=== PATIENT | female | born 1940 | race Two or more races ===

== ENCOUNTER 2022-08-18 21:05 | Inpatient (IN) | payer OTHER ==
[~2022-08-18] VITALS: Ht 165.1 cm; Wt 61.7 kg
[2022-08-18] MEDS ORDERED: CEFTRIAXONE 1GM BAG (ER ONLY) 50 ML IV ONE ×2 (22:30→22:43)
[2022-08-18] MEDS ORDERED: AZITHROMYCIN 500 MG in IV D5W 250 ML IV ONE (22:30)
[2022-08-18] MEDS ORDERED: AZITHROMYCIN 500 MG VIAL ONE (22:43)
[2022-08-18 22:58] LABS: BASOPHILS % (AUTO) 0.2 % (0.0-2.0); EOSINOPHILS % (AUTO) 0.3 % (0.0-6.0); HEMATOCRIT 40 % (33-45); HEMOGLOBIN 12.5 g/dL (11.5-14.8); LYMPHOCYTES # (AUTO) 0.7 K/uL (0.8-4.8); LYMPHOCYTES % (AUTO) 5.6 % (20.0-44.0); MEAN CORPUSCULAR HGB CONC 31 g/dl (31.0-36.0); MEAN CORPUSCULAR VOLUME 96 fL (82-100); MONOCYTES # (AUTO) 0.9 K/uL (0.1-1.30); MONOCYTES % (AUTO) 7.5 % (2.0-12.0); NEUTROPHILS # (AUTO) 10.6 K/uL (1.8-8.9); NEUTROPHILS % (AUTO) 86.4 % (43.0-81.0); PLATELET COUNT (AUTO) 416 K/uL (150-450); RED BLOOD CELL COUNT(AUTO) 4.18 MIL/uL (4.0-5.2); WHITE BLOOD COUNT (AUTO) 12.3 K/uL (4.3-11.0)
[2022-08-18 23:12] LABS: CALCIUM, SERUM 9.4 mg/dL (8.5-10.1); CARBON DIOXIDE 36 mmol/L (21-32); CHLORIDE 103 mmol/L (98-107); CREATININE 0.7 mg/dL (0.6-1.3); GLUCOSE 131 mg/dL (74-106); POTASSIUM 4.1 mmol/L (3.5-5.1); SODIUM SERUM 139 mmol/L (136-145); UREA NITROGEN, BLOOD 20 mg/dL (7-18)
[2022-08-19] MEDS ORDERED: ACETAMINOPHEN 325 MG TABLET PO PRN
[2022-08-19] MEDS ORDERED: Z GUARD REMEDY 4 OZ OINT TP PRN
[2022-08-19] MEDS ORDERED: TEMAZEPAM 15 MG CAPSULE PO PRN
[2022-08-19] MEDS ORDERED: MORPHINE SULFATE INJ 2 MG/ML DISP.SYRIN IV PRN
[2022-08-19] MEDS ORDERED: ONDANSETRON HCL/PF 4 MG/2 ML VIAL IVP PRN
[2022-08-19] MEDS ORDERED: MAG HYDROX/AL HYDROX/SIMETH 30 ML UDC PO PRN
[2022-08-19] MEDS ORDERED: MAGNESIUM HYDROXIDE 30 ML UDC PO PRN
--- NOTE | 2022-08-19 02:03 | NUR ---
REPORT GIVEN TO JOSE ROBERTO BENAVIDES
--- NOTE | 2022-08-19 02:45 | NUR ---
GRINDER SET UP OPERATOR EXTERNAL NOTE RECEIVED PT FROM ER VIA LIAT, A/O X3, PT ON 3L 02 VIA NM, TOLERATING WELL, NO S/S OF DISTRESS, TELE MONITOR READING SR WITH/ PVC'S HR 89, IV ACCESS ON LAC #2-G, INTACT AND PATENT, SKIN ASSESSMENT SHOWS SACRAL WOUND, REDNESS ION THE [place]EFER[place] AREA FOLDS, AND A BIG BRUISE ON R FOOT. 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 PT ABLE TO MAKE NEEDS KNOWN.ALL FALL AND SAFETY MEASURES IN PLACE, BED ALARM ON, BED IN LOW AND LOCK POSITION, CALL LIGHT AND TABLE WITHIN EASY REACH, SIDE RAILS UP X2. WILL CONTINUE TO MONITOR.
--- NOTE | 2022-08-19 02:47 | NUR ---
PATIENT TRANSFERRED TO [facility]
[2022-08-19 02:50] VITALS: BP 132/68
[2022-08-19] MEDS: HYDROCODONE/APAP 5/325MG TABLET PO PRN ×2 (03:58→17:40)
[2022-08-19 04:00] VITALS: BP 123/66
[2022-08-19] MEDS ORDERED: HYDROCODONE/APAP 5/325MG TABLET PO PRN (04:00)
--- NOTE | 2022-08-19 06:46 | NUR ---
RN CLOSING NOTE ALL SIGNIFICANT CHANGES THROUGHOUT SHIFT WAS DOCUMENTED. PT STABLE WILL ENDORSE TO MORNING SHIFT FOR DREA.
[2022-08-19 07:03] LABS: BASOPHILS % (AUTO) 0.2 % (0.0-2.0); EOSINOPHILS % (AUTO) 0.4 % (0.0-6.0); HEMATOCRIT 39 % (33-45); HEMOGLOBIN 11.9 g/dL (11.5-14.8); LYMPHOCYTES # (AUTO) 0.9 K/uL (0.8-4.8); LYMPHOCYTES % (AUTO) 6.5 % (20.0-44.0); MEAN CORPUSCULAR HGB CONC 31 g/dl (31.0-36.0); MEAN CORPUSCULAR VOLUME 97 fL (82-100); MONOCYTES # (AUTO) 1.3 K/uL (0.1-1.30); MONOCYTES % (AUTO) 9.6 % (2.0-12.0); NEUTROPHILS # (AUTO) 11.3 K/uL (1.8-8.9); NEUTROPHILS % (AUTO) 83.3 % (43.0-81.0); PLATELET COUNT (AUTO) 414 K/uL (150-450); RED BLOOD CELL COUNT(AUTO) 3.96 MIL/uL (4.0-5.2); WHITE BLOOD COUNT (AUTO) 13.6 K/uL (4.3-11.0)
[2022-08-19 07:16] LABS: CALCIUM, SERUM 9.3 mg/dL (8.5-10.1); CARBON DIOXIDE 35 mmol/L (21-32); CHLORIDE 103 mmol/L (98-107); CREATININE 0.6 mg/dL (0.6-1.3); GLUCOSE 121 mg/dL (74-106); MAGNESIUM 2.4 mg/dL (1.8-2.4); POTASSIUM 3.9 mmol/L (3.5-5.1); SODIUM SERUM 142 mmol/L (136-145); UREA NITROGEN, BLOOD 21 mg/dL (7-18)
--- NOTE | 2022-08-19 07:36 | NUR ---
WOUND CARE CONSULT: REVIEWED CHART, NURSING DOCUMENTATION AND PHOTO WHICH INDICATES SACRAL DEEP TISSUE INJURY, PRESENT ON ADMISSION. RECOMMENDATIONS MADE FOR SKIN PROTECTION. DISCUSSED WITH NURSING STAFF. MD IN AGREEMENT WITH PLAN OF CARE.
[2022-08-19] MEDS ORDERED: ESCI10TA PO (07:56)
[2022-08-19] MEDS ORDERED: FENT1PAT5 TD (07:56)
[2022-08-19] MEDS ORDERED: FOLI0.8C PO (07:56)
[2022-08-19] MEDS ORDERED: LEVO137T2 PO (07:56)
[2022-08-19] MEDS ORDERED: APIX5TAB PO (07:56)
[2022-08-19] MEDS ORDERED: DIPH-1048 PO (07:57)
[2022-08-19] MEDS ORDERED: TOPI25TA49 PO (07:57)
[2022-08-19] MEDS ORDERED: TRAZ-182 PO (07:57)
[2022-08-19] MEDS ORDERED: METO25TA3 PO (07:57)
[2022-08-19] MEDS ORDERED: MYRBETRIQ PO (07:57)
[2022-08-19] MEDS ORDERED: POLY15DR40 EACHEYE (07:57)
[2022-08-19] MEDS ORDERED: ASPI-966 PO (07:57)
[2022-08-19] MEDS ORDERED: CHOL200059 PO (07:57)
[2022-08-19] MEDS ORDERED: TRAM50TA2 PO (07:57)
[2022-08-19 08:00] VITALS: BP 143/77
[2022-08-19 08:56] LABS: ABG BASE EXCESS 6.2 mmol/L; ABG OXYGEN SATURATION 95.9 % (92.0-98.5); ABG PCO2 67.2 mmHg (35.0-45.0); ABG PH 7.326 (7.350-7.450); AaDO2 65.5 mmHg; COHb 0.9 % (0.5-1.5); MetHb 0.3 % (0.0-1.5); O2Hb 94.7 % (94.0-97.0); SITE, ABG Right Radial; VENT MODE, BG 3L NC
[2022-08-19] MEDS: PANTOPRAZOLE 40 MG TABLET.DR PO SCH (09:36)
[2022-08-19 10:00] LABS: CHOLESTEROL 98 mg/dL (<200); HDL CHOLESTEROL 32 mg/dL (40-60); LDL 60 mg/dL (0-99); TRIGLYCERIDES 71 mg/dL (30-150)
[2022-08-19] MEDS: methylPREDNISolone SOD SUCC 40 MG/ML VIAL IV SCH ×2 (11:38→16:04)
[2022-08-19] MEDS: ENOXAPARIN SODIUM 40 MG/0.4 ML DISP.SYRIN SQ SCH (11:41)
[2022-08-19] MEDS: IPRATROPIUM NEB FS 0.5 MG/2.5 ML AMPUL.NEB NEB SCH ×4 (11:44→23:26)
[2022-08-19] MEDS: ALBUTEROL HALF STRENGTH 1.25 MG/3 ML VIAL.NEB NEB SCH ×4 (11:45→23:26)
[2022-08-19 12:00] VITALS: BP 138/74
--- NOTE | 2022-08-19 13:31 | NUR ---
RN Receiving Report. Patient AOx4 able to express her concerns. All safety precaution taken, call light and table within reach, bed at lowest position. Patient with no signs of distress or discomfort, discussed plan on care, pt verbalized agreement. Will continue to provide care as needed and administered medications as prescribed. Per pt spoke with daughter in law on pts personal phone, requested to bring in pts medications for med reconciliation.
[2022-08-19 16:00] VITALS: BP 140/73
--- NOTE | 2022-08-19 18:37 | NUR ---
RN Closing Note Patient AOx2-3 able to express her own concerns. Patient remained stable thorough shift. Patient forgetful. IV with no signs of infiltration, No signs of respiratory distress. All medications administered as ordered. Care provided as needed and requested.
--- NOTE | 2022-08-19 19:20 | NUR ---
RN OPENING NOTES RECEIVED PATIENT ON BED, ALERT AND VERBALLY RESPONSIVE, ON NASAL CANULA @ 2 LPMSATING AT 93%, RESPIRATORY EVEN AND UNLABORED, NO SOB NOTED, AFEBRILE. . NOTED WITH lAC # 20, FLUSHED WITH NS. NO S/S OF INFILTRATION NOTED. ALL SAFETY PRECAUTION PROVIDED. BED IN LOWEST POSITION, LOCKED, BED ALARM ARMED. CALL LIGHT WITH IN REACH. CONTINUE TO MONITOR
[2022-08-19 20:00] VITALS: BP 136/85
--- NOTE | 2022-08-19 20:08 | NUR ---
RT NOTE TX WITHHELD DUE TO PENDING COVID RESULTS. RN FRANCIE NOTIFIED AND IS AWARE. NO DISTRESS NOTED AT THIS TIME.
[2022-08-19] MEDS: CEFTRIAXONE 1 G in IV D5W 50 ML IV SCH (21:30)
[2022-08-19] MEDS ORDERED: IV NS 0.9% 250 ML IV PRN (22:00)
--- NOTE | 2022-08-19 22:00 | NUR ---
RN NOTES PATIENT STATES THAT SHE IS TAKING TRAZODONE 50MG QHS AT HOME, PATIENT CURRENT NO ORDER FOR THAT. NOTIFIED BRAYAN HIGGINS WITH NEW ORDER TRAZODONE 50MG PO QHS NOTED AND CARRIED OUT.
--- NOTE | 2022-08-19 22:20 | NUR ---
RT NOTE PT PLACED ON BIPAP WITH CURRENT SETTINGS 15/5, 14, 30%. NOSE MASK SECURED. BIPAP PLUGGED TO RED OUTLET. ALARMS ON AND AUDIBLE. NO RESPIRATORY DISTRESS NOTED. WILL CONTINUE TO MONITOR. RN FRANCIE AT BEDSIDE.
[2022-08-19] MEDS: TRAZODONE 50 MG TABLET PO SCH (22:24)
[2022-08-19] MEDS: AZITHROMYCIN 500 MG in IV D5W 250 ML IV SCH (22:24)
--- NOTE | 2022-08-19 23:20 | NUR ---
RN NOTES PT REMOVED BIPAP, STATING SHE CAN'T TOLERATE IT, EXPLAINED RISKS AND BENEFITS, OFFER 3X, PATIENT STILL REFUSED TO PUT IT ON. NOTIFIED RESPIRATORY THERAPY . SPO2 @ 96% ON NASAL CANNULA 2 LPM. NO DISTRESS NOTED.
--- NOTE | 2022-08-19 23:25 | NUR ---
RT NOTE PT REMOVED BIPAP AND REFUSING TO USE IT. RN FRANCIE AT BEDSIDE. SPO2 @ 96% ON NASAL CANNULA 2 LPM. NO DISTRESS NOTED.
[2022-08-20] VITALS: BP 129/74
[2022-08-20] MEDS: IPRATROPIUM NEB FS 0.5 MG/2.5 ML AMPUL.NEB NEB SCH ×6 (03:30→23:15)
[2022-08-20] MEDS: ALBUTEROL HALF STRENGTH 1.25 MG/3 ML VIAL.NEB NEB SCH ×6 (03:30→23:15)
[2022-08-20 04:00] VITALS: BP 144/80
--- NOTE | 2022-08-20 07:09 | NUR ---
RN NOTES PATIENT REMAIN STABLE THROUGH OUT THE SHIFT, RESPIRATORY EVEN AND UNLABORED, NO SOB NOTED, AFEBRILE. ALL DUE MEDS GIVEN. ALL SAFETY PRECAUTION PROVIDED. BED IN LOWEST POSITION, LOCKED, BED ALARM ARMED. CALL LIGHT WITH IN REACH. CONTINUE TO MONITOR
--- NOTE | 2022-08-20 07:40 | NUR ---
RN OPENING NOTES RECEIVED PATIENT INN BED, ALERT AND VERBALLY RESPONSIVE, ON NASAL CANNULA @ 2 LPM, TOLERATING WELL, RESPIRATORY EVEN AND UNLABORED, NO SOB NOTED, AFEBRILE. . NOTED WITH LAC INTACT, NO S/S OF INFILTRATION NOTED. ALL SAFETY PRECAUTION PROVIDED. BED IN LOWEST POSITION, LOCKED, BED ALARM ARMED. CALL LIGHT WITH IN REACH. PLAN OF CARE ON CONTINUE.
[2022-08-20 08:00] VITALS: BP 147/76
[2022-08-20] MEDS: PANTOPRAZOLE 40 MG TABLET.DR PO SCH (08:19)
[2022-08-20] MEDS: methylPREDNISolone SOD SUCC 40 MG/ML VIAL IV SCH ×2 (08:20→16:51)
[2022-08-20] MEDS: ENOXAPARIN SODIUM 40 MG/0.4 ML DISP.SYRIN SQ SCH (08:23)
[2022-08-20] MEDS ORDERED: DIGO125T PO (10:52)
[2022-08-20] MEDS ORDERED: ASPI-1169 PO (10:56)
[2022-08-20] MEDS ORDERED: KRIL500C PO (10:56)
[2022-08-20] MEDS ORDERED: ONDA4TAB5 PO (10:56)
[2022-08-20] MEDS ORDERED: OMEP20CA15 PO (10:56)
[2022-08-20 10:59] LABS: ABG BASE EXCESS 6.4 mmol/L; ABG OXYGEN SATURATION 95.5 % (92.0-98.5); ABG PCO2 42.6 mmHg (35.0-45.0); ABG PH 7.475 (7.350-7.450); ABG PO2 77.5 mmHg (75.0-100.0); AaDO2 71.9 mmHg; COHb 0.7 % (0.5-1.5); MetHb 0.2 % (0.0-1.5); O2Hb 94.6 % (94.0-97.0); SITE, ABG Right Radial; VENT MODE, BG 2LPM NC
[2022-08-20] MEDS ORDERED: FENTANYL TD PATCH (12 MCG/HR) 12 MCG/HR PATCH.TD72 TD SCH (11:00)
[2022-08-20] MEDS: HYDROCODONE/APAP 5/325MG TABLET PO PRN ×2 (11:18→16:53)
[2022-08-20] MEDS: APIXABAN 5 MG TABLET PO SCH ×2 (11:20→16:51)
[2022-08-20 12:00] VITALS: BP 139/71
[2022-08-20] MEDS ORDERED: ASPIRIN/ACETAMINOPHEN/CAFFEINE 1 EACH TABLET PO PRN (12:00)
[2022-08-20] MEDS: DIGOXIN 0.125 MG TABLET PO SCH (12:09)
[2022-08-20] MEDS: ENSURE ENLIVE CHOC 237 ML CAN PO SCH ×2 (12:09→16:46)
[2022-08-20] MEDS: METOPROLOL SUCCINATE 50 MG TAB.SR.24H PO SCH (14:09)
[2022-08-20 16:00] VITALS: BP 139/76
[2022-08-20] MEDS ORDERED: APIXABAN 5 MG TABLET PO SCH (17:00)
[2022-08-20] MEDS ORDERED: ESCITALOPRAM OXALATE (10 MG) 10 MG TABLET PO SCH (18:00)
--- NOTE | 2022-08-20 18:21 | NUR ---
RN OPENING NOTES RECEIVED PATIENT INN BED, ALERT AND VERBALLY RESPONSIVE, ON NASAL CANNULA @ 2 LPM, TOLERATING WELL, RESPIRATORY EVEN AND UNLABORED, NO SOB NOTED, AFEBRILE. . NOTED WITH RIGHT FOREARM PIV PATENT AND INTACT, FLUSHES WELL, NO S/S OF INFILTRATION NOTED. ON TELE MONITOR WITH READING OF AFIB UNCONTROLLED HR 117, NO C/O OF CHEST PAIN. ALL SAFETY PRECAUTION PROVIDED. BED IN LOWEST POSITION, LOCKED, BED ALARM ARMED. CALL LIGHT WITH IN REACH. WILL ENDORSE TO NIGHT NURSE FOR DREA.
--- NOTE | 2022-08-20 19:40 | NUR ---
COGENERATION TECHNICIAN OPENING NOTES RECEIVED PATIENT IN BED, ALERT AND VERBALLY RESPONSIVE, ON NASAL CANNULA @ 2 LPM, TOLERATING WELL, RESPIRATORY EVEN AND UNLABORED, NO SOB NOTED, AFEBRILE. . NOTED WITH RIGHT FOREARM IV #20G PATENT AND INTACT, FLUSHES WELL, NO S/S OF INFILTRATION NOTED. ON TELE MONITOR WITH READING OF AFIB UNCONTROLLED HR 115, NO C/O OF CHEST PAIN. ALL SAFETY PRECAUTION PROVIDED. BED IN LOWEST POSITION, LOCKED, BED ALARM ARMED. CALL LIGHT WITH IN REACH. WILL CONTINUE TO MONITOR THROUGHOUT THE SHIFT.
[2022-08-20 20:00] VITALS: BP 158/81
--- NOTE | 2022-08-20 20:09 | NUR ---
RN NOTE RT AT BEDSIDE TO PLACE PT ON NOC BIPAP. PT REFUSED STATING "I'M NOT COMFORTABLE TO HAVE THAT ON, IT MAKES ME DIFFICULT TO BREATH" EDUCATED ABOUT THE IMPORTANCE OF NOC BIPAP FOR HER LUNG FUNCTION, PT STILL REFUSED. NOW SATING AT 98% ON 2L NC.
--- NOTE | 2022-08-20 20:11 | NUR ---
RCVD PT 2L NC , PT REFUSED NOC BIPAP, IM TRYING TO CONVINCED THE PT AND SHE SAID THAT SHE IS NOT COMFORTABLE AND FELT AWFUL WHEN USING BIPAP MACHINE. SPO2 94%, JOSE ROBERTO MARSHALL NOTIFIED. WILL CONTINUE TO MONITOR T/O SHIFT. Addendum: 08/20/22 at 2254 by KEO SANDS RT TRIED TO CONVINCE PT TO USE THE NOC BIPAP AND EXPLAINED THE BENEFITS IF SHE IS USING THE MACHINE . SHE STILL REFUSED NOC BIPAP AND PT SAID THAT SHE FELT AWFUL AND NOT COMFORTABLE. JOSE ROBERTO MARSHALL NOTIFIED
[2022-08-20] MEDS: TRAZODONE 50 MG TABLET PO SCH (21:33)
[2022-08-20] MEDS: AZITHROMYCIN 500 MG in IV D5W 250 ML IV SCH (21:33)
[2022-08-20] MEDS: CEFTRIAXONE 1 G in IV D5W 50 ML IV SCH (21:33)
[2022-08-20] MEDS ORDERED: TRAZODONE 50 MG TABLET PO SCH (22:00)
[2022-08-21] VITALS: BP 142/97
[2022-08-21] MEDS: HYDROCODONE/APAP 5/325MG TABLET PO PRN ×2 (02:22→09:56)
[2022-08-21] MEDS: ALBUTEROL HALF STRENGTH 1.25 MG/3 ML VIAL.NEB NEB SCH ×4 (02:41→15:10)
[2022-08-21] MEDS: IPRATROPIUM NEB FS 0.5 MG/2.5 ML AMPUL.NEB NEB SCH ×4 (02:41→15:09)
[2022-08-21 04:00] VITALS: BP 132/90
[2022-08-21 05:52] LABS: CALCIUM, SERUM 8.8 mg/dL (8.5-10.1); CREATININE 0.6 mg/dL (0.6-1.3); MAGNESIUM 2.2 mg/dL (1.8-2.4); PHOSPHORUS 2.6 mg/dL (2.5-4.9); POTASSIUM 3.9 mmol/L (3.5-5.1)
--- NOTE | 2022-08-21 06:34 | NUR ---
FRAUD INVESTIGATOR CLOSING NOTES PATIENT REMAINS IN BED, SLEEPING BUT EASILY AROUSABLE TO TOUCH AND VOICE, PT ON NASAL CANNULA @ 2 LPM, TOLERATING WELL SATING 97%, RESPIRATORY EVEN AND UNLABORED, NO SOB NOTED, AFEBRILE. . NOTED WITH RIGHT FOREARM IV #20G PATENT AND INTACT, FLUSHES WELL RUNNING NS AT TKO, NO S/S OF INFILTRATION NOTED. ON TELE MONITOR WITH READING CONTROLLED AFIB/AFLUTTER @82 BPM, NO C/O OF CHEST PAIN. ALL DUE MEDS GIVEN, KEPT DRY AND CLEAN, ALL SAFETY PRECAUTION PROVIDED. BED IN LOWEST POSITION, LOCKED, BED ALARM ARMED. CALL LIGHT WITH IN REACH. WILL ENDORSE TO AM SHIFT NURSE FOR CONTINUITY OF CARE.
[2022-08-21 07:28] LABS: BASOPHILS % (AUTO) 0.1 % (0.0-2.0); HEMATOCRIT 39 % (33-45); HEMOGLOBIN 12.6 g/dL (11.5-14.8); LYMPHOCYTES # (AUTO) 0.6 K/uL (0.8-4.8); LYMPHOCYTES % (AUTO) 6.2 % (20.0-44.0); MEAN CORPUSCULAR HGB CONC 32 g/dl (31.0-36.0); MEAN CORPUSCULAR VOLUME 95 fL (82-100); MONOCYTES # (AUTO) 0.5 K/uL (0.1-1.30); MONOCYTES % (AUTO) 5.2 % (2.0-12.0); NEUTROPHILS # (AUTO) 8.2 K/uL (1.8-8.9); NEUTROPHILS % (AUTO) 88.5 % (43.0-81.0); PLATELET COUNT (AUTO) 412 K/uL (150-450); RED BLOOD CELL COUNT(AUTO) 4.12 MIL/uL (4.0-5.2); WHITE BLOOD COUNT (AUTO) 9.2 K/uL (4.3-11.0)
[2022-08-21] MEDS ORDERED: LEVOTHYROXINE SODIUM 137 MCG TABLET PO SCH (07:30)
[2022-08-21] MEDS: ENSURE ENLIVE CHOC 237 ML CAN PO SCH ×3 (07:47→16:14)
[2022-08-21] MEDS: PANTOPRAZOLE 40 MG TABLET.DR PO SCH (07:47)
--- NOTE | 2022-08-21 07:56 | NUR ---
IT SECURITY ARCHITECT OPENING NOTES RECEIVED PATIENT IN BED, ALERT AND VERBALLY RESPONSIVE, ON NASAL CANNULA @ 2 LPM, TOLERATING WELL, RESPIRATORY EVEN AND UNLABORED, NO SOB NOTED, AFEBRILE. . NOTED WITH RIGHT FOREARM IV #20G PATENT AND INTACT, FLUSHES WELL, NO S/S OF INFILTRATION NOTED. ON TELE MONITOR WITH READING OF AFIB A FLUTTER HR 99-113. NO C/O OF CHEST PAIN. PUREWICK IN PLACED, DRAINING CLEAR YELLOW URINE. ALL SAFETY PRECAUTION PROVIDED. BED IN LOWEST POSITION, LOCKED, BED ALARM ARMED. CALL LIGHT WITH IN REACH. PLAN OF CARE CONTINUED.
[2022-08-21 08:00] VITALS: BP 151/86
[2022-08-21] MEDS: methylPREDNISolone SOD SUCC 40 MG/ML VIAL IV SCH (08:37)
[2022-08-21] MEDS: METOPROLOL SUCCINATE 50 MG TAB.SR.24H PO SCH (08:46)
[2022-08-21] MEDS: DIGOXIN 0.125 MG TABLET PO SCH (08:46)
[2022-08-21] MEDS: APIXABAN 5 MG TABLET PO SCH (08:47)
[2022-08-21] MEDS ORDERED: TOPIRAMATE 25 MG TABLET PO SCH (09:00)
--- NOTE | 2022-08-21 11:56 | NUR ---
COSMETIC SALES NOTES [facility] COLLECTED, CALLED LAB TO PICK IT UP. PLAN OF CARE CONTINUE.
[2022-08-21 12:00] VITALS: BP 140/90
[2022-08-21 12:49] LABS: BILIRUBIN,URINE NEGATIVE (NEGATIVE); COLOR,URINE YELLOW (YELLOW); LEUKOCYTE ESTERASE ,URINE NEGATIVE (NEGATIVE); NITRITE, URINE NEGATIVE (NEGATIVE); PROTEIN,URINE NEGATIVE (NEGATIVE); UGLUCOSE NEGATIVE (NEGATIVE); UROBILINOGEN,URINE 0.2 EU/dL (0.2)
[2022-08-21] MEDS ORDERED: PRED20TA PO (14:38)
[2022-08-21] MEDS ORDERED: AZIT250T PO (14:38)
--- NOTE | 2022-08-21 17:00 | NUR ---
TELE DISCHARGE NOTES DISCHARGE SUMMARY INSTRUCTIONS REVIEWED WITH THE PATIENT, PATIENT CONFIRMED UNDERSTANDING, PATIENT SIGNED DISCHARGE PAPERWORKS AND INVENTORY LIST, RELEASED ALL PERSONAL BELONGINGS TO THE PATIENT AND DISCHARGE PAPERWORKS AND HOME MEDICATIONS. EDUCATE PATIENT TO FOLLOW [facility] WITH PCP. PATIENT ON RA AXEL @96%RA. AWAITING FOR DAUGHTER IN [employer] FOR TRANSPORTATION.
--- NOTE | 2022-08-21 18:00 | NUR ---
SHUTTLE VAN DRIVER NOTES PATIENT EXITED THE FACILITY VIA WHEELCHAIR PICKED UP BY DAUGHTER IN [employer] STABLE.
[2022-08-21] MEDS ORDERED: AZITHROMYCIN 250 MG TABLET PO SCH (21:00)
[2022-08-22] MEDS ORDERED: methylPREDNISolone SOD SUCC 40 MG/ML VIAL IV SCH (09:00)
== END 2022-08-21 17:05 | disposition home health service (06) | DRG 189 ==
LOC: ER 21:06 → TELE1 08-19 01:23
PROVIDERS: ADMIT Nurse Practitioner Acute Care; ATTEND Nurse Practitioner Acute Care
DX: J96.21 Acute and chronic respiratory failure with hypoxia (principal); I50.33 Acute on chronic diastolic (congestive) heart failure; J15.9 Unspecified bacterial pneumonia; D68.59 Other primary thrombophilia; J44.0 Chronic obstructive pulmonary disease with (acute) lower respiratory infection; I11.0 Hypertensive heart disease with heart failure; J96.22 Acute and chronic respiratory failure with hypercapnia; I48.91 Unspecified atrial fibrillation; E03.9 Hypothyroidism, unspecified; G43.909 Migraine, unspecified, not intractable, without status migrainosus; G31.84 Mild cognitive impairment of uncertain or unknown etiology; Z20.822 Contact with and (suspected) exposure to COVID-19; Z99.81 Dependence on supplemental oxygen
CPT/HCPCS: 36415; 36600; 71045-TC; 80048-TC; 80061-TC; 80162-TC; 82803-TC; 83605-TC; 83735-TC; 83880; 84100-TC; 84484-TC; 85025-TC; 87040-TC; 87081-TC; 93307-TC; 94799-TC; C9803; G0378; J0456; J0696; J1650; J2920; J7050; J7060; U0003